=== PATIENT | male | born 1990 | race American Indian/Alaskan Native ===

== ENCOUNTER 2019-08-29 18:17 | Emergency (ER) | payer SELFPAY ==
--- NOTE | 2019-08-29 21:57 | Event Note ---
ED Screening Note Date of service: 08/29/19 Time: 21:56 ED Screening Note: 28 y o m presents withright groin hernia and cc of fever, n This initial assessment/diagnostic orders/clinical plan/treatment(s) is/are subject to change based on patients health status, clinical progression and re-assessment by fellow clinical providers in the ED. Further treatment and workup at subsequent clinical providers discretion. Patient/guardian urged not to elope from the ED as their condition may be serious if not clinically assessed and managed. Initial orders include: mohinderrin acc eval
[2019-08-29] MEDS ORDERED: IBUPROFEN 800 MG TAB PO ONE (21:59)
[2019-08-29] MEDS ORDERED: ACETAMINOPHEN 325 MG TAB PO ONE (22:02)
[2019-08-29] MEDS ORDERED: ACETAMINOPHEN 325 MG TAB ONE (22:03)
[2019-08-29 22:47] LABS: Hematocrit 40.1 % (35.5-45.6); Hemoglobin 13.6 gm/dl (11.8-15.2); Mean Corpuscular HGB Conc 34 % (32-34); Mean Corpuscular Volume 91 fl (84-94); Platelet Count 328 K/mm3 (140-440); Red Blood Count 4.39 M/mm3 (3.65-5.03); Red Cell Distribution Width 13.7 % (13.2-15.2)
--- NOTE | 2019-08-29 23:29 | Ultrasound Report ---
EXAMINATION: Testicular/scrotal ultrasound, 08/29/2019 CLINICAL INFORMATION: Right groin pain. COMPARISON: No relevant prior studies are available for comparison. FINDINGS: Both testicles appear normal in size and echogenicity. There is symmetric Doppler flow to both testic les. The right epididymis appears heterogeneous with increased vascularity as compared to the left. Very t race bilateral hydroceles are present. Several prominent but not pathologically enlarged right inguinal lymph nodes are noted. IMPRESSION: 1. Heterogeneous appearance of the right epididymis with associated increased vascularity. This is a nonspecific finding but may suggest an infectious or inflammatory process. Please correlate with jose roberto ent's clinical circumstances. Signer Name: Chery Lee MD Signed: 08/29/2019 11:25 PM Workstation Name: [id number]
[2019-08-29] MEDS ORDERED: SODIUM CHLORIDE 0.9% 1000 ML 2,000 ML IV ONE (23:34)
[2019-08-29] MEDS ORDERED: cefTRIAXone/NS 1 GM/50 ML 1 GM/50 ML BAG IV ONE (23:34)
--- NOTE | 2019-08-29 23:36 | Emergency Department Report ---
ED General Adult HPI - General Chief complaint: Nausea/Vomiting/Diarrhea Stated complaint: HERNIA Time Seen by Provider: 08/29/19 22:51 Source: patient, RN notes reviewed Mode of arrival: Ambulatory Limitations: No Limitations - History of Present Illness Initial comments: chaperoned by Na Babin Patient is a 28-year-old gentleman, not known to this provider previously, denies chronic medical conditions, presenting to the ER with complaint of nontraumatic right-sided testicular pain and swelling. Symptoms present for the past 2 days. Denies headache, neck pain, chest pain, abdominal pain. Mild discomfort with urination. Reports multiple sexual partners over the past few months, oral, vaginal, insertive anal, without Protection. -: Gradual, days(s) Location: genitals, right Radiation: non-radiation Severity scale (0 -10): 7 Quality: aching Consistency: constant Improves with: rest Worsens with: movement - Related Data Previous Rx's Medication Instructions Recorded Last Taken Type Acetaminophen [Non-Aspirin Extra 500 mg PO Q6HR PRN #30 tablet 08/30/19 Unknown Rx Strength] Ibuprofen [Motrin] 600 mg PO Q8H PRN #30 tablet 08/30/19 Unknown Rx Metoclopramide [Reglan] 10 mg PO QID PRN #30 tablet 08/30/19 Unknown Rx levoFLOXacin [Levaquin TAB] 500 mg PO QDAY #10 tablet 08/30/19 Unknown Rx Allergies Allergy/AdvReac Type Severity Reaction Status Date / Time No Known Allergies Allergy Verified 08/29/19 22:06 ED Review of Systems ROS: Stated complaint: HERNIA Other details as noted in HPI Constitutional: fever. denies: malaise, weakness Eyes: denies: vision change ENT: denies: congestion Respiratory: cough Cardiovascular: denies: chest pain Gastrointestinal: denies: abdominal pain Genitourinary: dysuria, testicular pain, testicular mass Musculoskeletal: denies: back pain Skin: denies: lesions Neurological: denies: weakness Hematological/Lymphatic: denies: easy bleeding ED Past Medical Hx - Past Medical History Previous Medical History?: No - Surgical History Past Surgical History?: No - Social History Smoking Status: Current Every Day Smoker Substance Use Type: Marijuana - Medications Home Medications: Home Medications Medication Instructions Recorded Confirmed Last Taken Type Acetaminophen [Non-Aspirin Extra 500 mg PO Q6HR PRN #30 tablet 08/30/19 Unknown Rx Strength] Ibuprofen [Motrin] 600 mg PO Q8H PRN #30 tablet 08/30/19 Unknown Rx Metoclopramide [Reglan] 10 mg PO QID PRN #30 tablet 08/30/19 Unknown Rx levoFLOXacin [Levaquin TAB] 500 mg PO QDAY #10 tablet 08/30/19 Unknown Rx ED Physical Exam - General Limitations: No Limitations General appearance: alert, in no apparent distress - Head Head exam: Present: atraumatic, normocephalic - Eye Eye exam: Present: normal appearance, EOMI. Absent: nystagmus - ENT ENT exam: Present: normal exam, normal orophraynx, mucous membranes moist, normal external ear exam - Neck Neck exam: Present: normal inspection, full ROM. Absent: tenderness, meningismus - Respiratory Respiratory exam: Present: normal lung sounds bilaterally. Absent: respiratory distress - Cardiovascular Cardiovascular Exam: Present: normal rhythm, tachycardia, normal heart sounds. Absent: systolic murmur, diastolic murmur, rubs, gallop - GI/Abdominal GI/Abdominal exam: Present: soft. Absent: distended, tenderness, guarding, rebound, rigid - Rectal Rectal exam: Present: deferred - exam: Present: scrotal swelling, other (current masseteric reflexes intact bilaterally. The right posterior testicle is tender. Anterior and lateral testicle nontender. There is no redness, pus or streaking. Chaperoned by Na Babin). Absent: urethral discharge External exam: Present: other (no perineum erythema is noted.) - Extremities Exam Extremities exam: Present: normal inspection, full ROM, other (2+ pulses noted in the bilateral upper and lower extremities. The pelvis is stable. There is no long bony tenderness. The muscular compartments are soft. There is no redness, pus, streaking or erythema.). Absent: calf tenderness - Back Exam Back exam: Present: normal inspection. Absent: tenderness, CVA tenderness (R), CVA tenderness (L), paraspinal tenderness, vertebral tenderness - Neurological Exam Neurological exam: Present: alert, normal gait, other (there is no facial droop. The tongue is midline. Extraocular movements are intact bilaterally. Speaking in full sentences. Hearing is grossly intact. 5 out of 5 strength bilateral upper and lower extremities. Sensation is intact to light touch bilateral upper and lower extremities.). Absent: motor sensory deficit - Psychiatric Psychiatric exam: Present: normal affect, normal mood - Skin Skin exam: Present: warm, dry, intact, normal color. Absent: rash ED Course Vital Signs 08/29/19 08/29/19 08/29/19 21:56 23:56 23:57 Temperature 102.9 F H 99.5 F Pulse Rate 104 H 109 H Respiratory 18 18 18 Rate Blood Pressure 136/54 Blood Pressure 111/59 [Left] O2 Sat by Pulse 98 99 Oximetry ED Medical Decision Making - Lab Data Result diagrams: 08/29/19 22:21 08/29/19 22:21 Vital Signs 08/29/19 08/29/19 08/29/19 21:56 23:56 23:57 Temperature 102.9 F H 99.5 F Pulse Rate 104 H 109 H Respiratory 18 18 18 Rate Blood Pressure 136/54 Blood Pressure 111/59 [Left] O2 Sat by Pulse 98 99 Oximetry Lab Results 08/29/19 08/29/19 08/29/19 Range/Units 22:21 22:21 23:51 WBC 6.9 (4.5-11.0) K/mm3 RBC 4.39 (3.65-5.03) M/mm3 Hgb 13.6 (11.8-15.2) gm/dl Hct 40.1 (35.5-45.6) % MCV 91 (84-94) fl MCH 31 (28-32) pg MCHC 34 (32-34) % RDW 13.7 (13.2-15.2) % Plt Count 328 (140-440) K/mm3 Sodium 137 (137-145) mmol/L Potassium 3.7 (3.6-5.0) mmol/L Chloride 100.7 (98-107) mmol/L Carbon Dioxide 23 (22-30) mmol/L Anion Gap 17 mmol/L BUN 10 (9-20) mg/dL Creatinine 0.9 (0.8-1.5) mg/dL Estimated GFR > 60 ml/min BUN/Creatinine Ratio 11 % Glucose 124 H (75-100) mg/dL Calcium 9.0 (8.4-10.2) mg/dL Total Bilirubin 0.50 (0.1-1.2) mg/dL AST 24 (5-40) units/L ALT 20 (7-56) units/L Alkaline Phosphatase 83 (35-129) units/L Total Creatine Kinase 137 (55-170) units/L Total Protein 7.4 (6.3-8.2) g/dL Albumin 4.4 (3.9-5) g/dL Albumin/Globulin Ratio 1.5 % - Radiology Data Radiology results: report reviewed X-ray of the chest is negative for acute disease. Testicular ultrasound shows no evidence of torsion. Epididymitis is suggested. - Medical Decision Making Differential diagnosis, including but not limited to: Epididymitis, orchitis, cystitis, bronchitis/pneumonia Assessment and plan: 28-year-old gentleman with isolated right-sided testicular pain and swelling, ultrasound suggestive of epididymitis, tachycardia resolved, he is well-appearing at this time. He is suitable for a trial of outpatient management he's loaded with ceftriaxone, given history of insertive anal intercourse, will be discharged with Levaquin 500 mg every 24 for 10 days.\ We discussed need for outpatient follow-up for further health maintenance, we also discussed appropriate safe sex practices.. Critical care attestation.: If time is entered above; I have spent that time in minutes in the direct care of this critically ill patient, excluding procedure time. ED Disposition Clinical Impression: Acute febrile illness, Right testicular pain Disposition: DC-01 TO HOME OR SELFCARE Is pt being admited?: No Does the pt Need Aspirin: No Condition: Stable Additional Instructions: Cultures were sent today, and results will be available next 3-5 days. Please have your primary care doctor call the medical records department to obtain your culture results. Take the antibiotic therapy as directed. Take the nausea medication and pain medication as directed. I recommend outpatient testing for sexually transmitted diseases, including hepatitis, syphilis and HIV. I also recommend that you abstain from sexual activity until you have completed her antibiotic therapy, a physician states that it is safe for you to resume sexual activity, and any partners that you have been sexually active with have been tested/treated/evaluated for sexual transmitted diseases. Please follow-up with physician within 3-5 days. I recommend that you return to the ER right away with worsening pain, migration of pain, intractable nausea/vomiting, inability tolerate liquid feeds. Avoid consumption of alcohol while taking the prescription medications. Referrals: XAVIER CAZARES MD [Primary Care Provider] - 3-5 Days [facility] [Provider Group] - 3-5 Days [facility] PRIMARY CARE [Provider Group] - 3-5 Days [facility] [Outside] - 3-5 Days
[2019-08-29 23:42] LABS: Alanine Aminotransferase 20 units/L (7-56); Albumin 4.4 g/dL (3.9-5); BUN/Creatinine Ratio 11; Blood Urea Nitrogen 10 mg/dL (9-20); Hemolysis Index 5
[2019-08-29 23:58] VITALS: BP 111/59
--- NOTE | 2019-08-30 01:18 | XRay Report ---
CHEST 1 VIEW, 08/29/2019 11:59 PM CLINICAL INFORMATION/INDICATION: Cough. Fever. COMPARISON: None FINDINGS: SUPPORT DEVICES: None. HEART: The cardiac silhouette is normal in size. LUNGS/PLEURA: There is no focal airspace disease or significant pleural effusion. ADDITIONAL FINDINGS: No additional acute findings. IMPRESSION: 1. No evidence of acute cardiopulmonary process. Signer Name: Chery Lee MD Signed: 08/30/2019 1:13 AM Workstation Name: [id number]
[2019-08-30 02:01] LABS: Basophils % (Manual) 0 % (0.0-1.8); Eosinophils % (Manual) 0 % (0.0-4.3); Total Cells Counted 100
[2019-08-30 02:02] LABS: Anisocytosis Few; Large Platelets 1+; Ovalocytes Few; Platelet Estimate Consistent w Auto
[2019-08-30 02:08] LABS: Bilirubin,Urine Negative (Negative); Color,Urine Yellow (Yellow)
[2019-08-30 02:09] LABS: Blood,Urine Negative (Negative); Urobilinogen,Urine < 2.0 mg/dL (<2.0)
[2019-08-30 02:10] LABS: Mucus,Urine 2+ /HPF
[2019-08-30 05:21] LABS: Eosinophils % (Auto) 0.5 % (0.0-4.3); Monocytes # (Auto) 1.4 K/mm3 (0.0-0.8)
== END 2019-08-30 02:04 | disposition home or self-care (01) ==
LOC: ED 18:17
DX: N50.811 Right testicular pain (principal); R50.9 Fever, unspecified; F17.200 Nicotine dependence, unspecified, uncomplicated; F12.10 Cannabis abuse, uncomplicated; Z79.899 Other long term (current) drug therapy
CPT/HCPCS: 36415; 71045; 80053; 81001; 82550; 85007; 85025; 87086; 93975; 96365; 99284; J0696; J7030